=== PATIENT | female | born 1990 | race Caucasian/White ===

== ENCOUNTER 2016-10-26 02:57 | Emergency (ER) | payer OTHER ==
[~2016-10-26] VITALS: Ht 162.6 cm; Wt 54.4 kg
[2016-10-26 03:19] VITALS: BP 109/73
[2016-10-26 03:27] LABS: ABSOLUTE BASOPHIL COUNT 0 /CUMM (0.0-0.2); ABSOLUTE EOSINOPHIL COUNT 0.2 /CUMM (0.0-0.7); ABSOLUTE GRANULOCYTE CT 3.5 /CUMM (1.4-6.5); ABSOLUTE LYMPH COUNT 2.1 /CUMM (1.2-3.4); ABSOLUTE MONOCYTE COUNT 0.6 /CUMM (0.10-0.60); BASOPHIL % 0.6 % (0.0-2.0); EOSINOPHIL % 2.6 % (0-5); GRANULOCYTE % 55.1 % (42.2-75.2); HEMATOCRIT 44.1 % (37-47); MEAN CORPUSCULAR HGB 29.3 PG (27.0-31.0); MEAN CORPUSCULAR HGB CONC 32.8 G/DL (33.0-37.0); MEAN CORPUSCULAR VOLUME 89.3 FL (81.0-99.0); MEAN PLATELET VOLUME 9.2 FL (7.4-10.4); PLATELET COUNT 229 /CUMM (130-400); RBC DISTRIBUTION WIDTH 13.1 % (11.5-14.5); RED BLOOD CELL CT 4.94 /CUMM (4.20-5.40); WHITE BLOOD CELL COUNT 6.3 /CUMM (4.8-10.8)
--- NOTE | 2016-10-26 03:29 | ED GI/GU/ABDOMINAL COMPLAINT ---
History of Present Illness General Chief Complaint: Abdominal Pain/Flank Pain Stated Complaint: "PER EMS ABD PAIN" Source: patient Exam Limitations: no limitations Vital Signs & Intake/Output Vital Signs & Intake/Output Vital Signs Date Time Temp Pulse Resp B/P B/P Pulse O2 O2 Flow FiO2 Mean Ox Delivery Rate 10/26 0319 99.6 94 18 109/73 96 Room Air Allergies Coded Allergies: No Known Allergies (10/26/16) Reconcile Medications No Known Home Medications Triage Nurses Notes Reviewed? yes ? n Is pt currently ? No Onset: Abrupt Duration: hour(s):, waxing and waning Timing: recent history Quality/Severity: cramping Location: epigastric, generalized abdomen, right upper quadrant Radiation: no radiation Activities at Onset: fasting Modifying Factors: Worsens With: palpation. Associated Symptoms: abdominal pain, nausea/vomiting HPI: 26 yo woman in prior good health, fasting for , awoke this am, approximately 2am, with right upper quadrant tenderness to palpation, radiating across the upper abdomen. She notes also mid epigastric pain that radiates to suprapubic region. She has no nausea, vomiting, diarrhea, chills, shortness of breath. She is otherwise well. Past History Travel History Traveled to [place] past 21 day No Medical History Any Pertinent Medical History? see below for history Surgical History Surgical History: none Family History Hx Contributory? No Review of Systems Review of Systems Constitutional: Reports: no symptoms. EENTM: Reports: no symptoms. Respiratory: Reports: no symptoms. Cardiovascular: Reports: no symptoms. GI: Reports: no symptoms. Genitourinary: Reports: no symptoms. Musculoskeletal: Reports: no symptoms. Skin: Reports: no symptoms. Neurological/Psychological: Reports: no symptoms. Hematologic/Endocrine: Reports: no symptoms. Immunologic/Allergic: Reports: no symptoms. All Other Systems: Reviewed and Negative Physical Exam Physical Exam General Appearance: well developed/nourished, mild distress Head: atraumatic, normal appearance Eyes: Bilateral: normal appearance. Ears, Nose, Throat, Mouth: hearing grossly normal Neck: normal inspection, supple, full range of motion, normal alignment Respiratory: normal breath sounds, chest non-tender, no respiratory distress, quiet respiration, lungs clear Cardiovascular: regular rate/rhythm Gastrointestinal: normal bowel sounds, soft, mild ruq, mid epigastric, left lower quadrant tenderness to palpation. no rebound. no guarding. Back: normal inspection Extremities: normal range of motion Neurologic/Psych: no motor/sensory deficits, awake, alert, oriented x 3 Skin: intact, normal color, warm/dry Core Measures ACS in differential dx? No Severe Sepsis Present: No Septic Shock Present: No Progress Differential Diagnosis: bilary colic vs other. Plan of Care: Orders Procedure Date/time Status URINE 10/26 302 Complete URINALYSIS 10/26 302 Complete LIPASE 10/26 302 Complete COMPREHENSIVE METABOLIC PANEL 10/26 302 Complete CBC WITHOUT DIFFERENTIAL 10/26 302 Complete AMYLASE 10/26 302 Complete Laboratory Tests 10/26/16 0328: Urine Color STRAW, Urine Clarity CLEAR, Urine pH 7.0, Ur Specific [place] <= 1.005, Urine Protein NEG, Urine Ketones NEG, Urine Nitrite NEG, Urine Bilirubin NEG, Urine Urobilinogen 0.2, Ur Leukocyte Esterase NEG, Ur Microscopic EXAM NOT REQUIRED, Urine Hemoglobin NEG, Urine Glucose NEG, Urine Test NEGATIVE 10/26/16 0316: Anion Gap 11, Estimated GFR > 60, BUN/Creatinine Ratio 23.3, Glucose 85, Calcium 9.7, Total Bilirubin 0.4, AST 17, ALT 31, Alkaline Phosphatase 51, Total Protein 7.2, Albumin 4.1, Globulin 3.1, Albumin/Globulin Ratio 1.3, Amylase 63, Lipase 99, CBC w Diff NO MAN DIFF REQ, RBC 4.94, MCV 89.3, MCH 29.3, RDW 13.1, MPV 9.2, Gran % 55.1, Lymphocytes % 32.7, Monocytes % 9.0, Eosinophils % 2.6, Basophils % 0.6, Absolute Granulocytes 3.5, Absolute Lymphocytes 2.1, Absolute Monocytes 0.6 , Absolute Eosinophils 0.2, Absolute Basophils 0, PUBS MCHC 32.8 L Diagnostic Imaging: Viewed by Me: CT Scan. Discussed w/RAD: CT Scan. Radiology Impression: abd/pelvic ct... trace fluid. contracted gall bladder... otherwise benign. Initial ED EKG: none Comments: PATIENT: MER LAMB PRESENT AGE: 26 PATIENT ACCOUNT NO: [id number] : 89 LOCATION: [facility] ([place]) ORDERING PHYSICIAN: TAYLOR MERRILL MD SERVICE DATE: 06/12/17-0400 EXAM TYPE: CAT - CT ABD & PELVIS W/O IV CONTRAS EXAMINATION: CT ABDOMEN AND PELVIS WITHOUT CONTRAST CLINICAL INFORMATION: Right upper quadrant pain, left lower quadrant pain COMPARISON: None TECHNIQUE: Multidetector volumetric imaging was performed from the superior aspect of the liver through the pubic symphysis. Sagittal and coronal reformatted images were obtained on the technologist's workstation. DLP: 247.55 mGy-cm FINDINGS: LUNG BASES: The visualized lung bases are unremarkable. LIVER, GALLBLADDER, AND BILIARY TREE: The liver is normal in size, shape, and attenuation. No focal hepatic lesion or biliary ductal dilatation is present. The gallbladder is decompressed and not well evaluated. PANCREAS: Unremarkable. SPLEEN: Unremarkable. ADRENAL GLANDS: Unremarkable. KIDNEYS AND URETERS: The kidneys are normal in size, shape, and attenuation. No hydronephrosis, hydroureter, or calculi seen. No perinephric stranding. BLADDER: Unremarkable. GASTROINTESTINAL TRACT: The small and large bowel are unremarkable. The appendix is unremarkable. ABDOMINAL WALL: No significant hernia is appreciated. LYMPH NODES: No lymphadenopathy is seen, though assessment is limited in the absence of intravenous contrast. VASCULAR: Unremarkable. PELVIC VISCERA: Grossly unremarkable. There is suspected to be trace pelvic free fluid. OSSEOUS STRUCTURES: Unremarkable. IMPRESSION: Trace nonspecific pelvic free fluid, which may be physiologic. No additional acute findings identified. The gallbladder is decompressed and not well evaluated. DICTATED BY: SALAZAR CHAWLA MD DATE/TIME DICTATED:10/26/16451 YOUTH DEVELOPMENT PROFESSIONAL:JACLYN DATE/TIME TRANSCRIBED:10/26/16451 CONFIDENTIAL, DO NOT COPY WITHOUT APPROPRIATE AUTHORIZATION. <Electronically signed in Other Vendor System> SIGNED BY: SALAZAR CHAWLA MD 10/26/16 0506 Departure Departure Disposition: HOME OR SELF CARE Condition: Stable Clinical Impression Primary Impression: Abdominal pain Referrals: PATIENT HAS NO PRIMARY CARE DR (PCP/Family) Departure Forms: Customer Survey General Discharge Information Prescriptions: Current Visit Scripts No Known Home Medications Comments 10/26/16, 5:40.... ct scan benign. labs benign... pt feeling better. discussed with patient and family... pt safe for discharge with close follow up advised.
--- NOTE | 2016-10-26 05:06 | CT SCAN REPORT ---
EXAMINATION: CT ABDOMEN AND PELVIS WITHOUT CONTRAST CLINICAL INFORMATION: Right upper quadrant pain, left lower quadrant pain COMPARISON: None TECHNIQUE: Multidetector volumetric imaging was performed from the superior aspect of the liver through the pubic symphysis. Sagittal and coronal reformatted images were obtained on the technologist's workstation. DLP: 247.55 mGy-cm FINDINGS: LUNG BASES: The visualized lung bases are unremarkable. LIVER, GALLBLADDER, AND BILIARY TREE: The liver is normal in size, shape, and attenuation. No focal hepatic lesion or biliary ductal dilatation is present. The gallbladder is decompressed and not well evaluated. PANCREAS: Unremarkable. SPLEEN: Unremarkable. ADRENAL GLANDS: Unremarkable. KIDNEYS AND URETERS: The kidneys are normal in size, shape, and attenuation. No hydronephrosis, hydroureter, or calculi seen. No perinephric stranding. BLADDER: Unremarkable. GASTROINTESTINAL TRACT: The small and large bowel are unremarkable. The appendix is unremarkable. ABDOMINAL WALL: No significant hernia is appreciated. LYMPH NODES: No lymphadenopathy is seen, though assessment is limited in the absence of intravenous contrast. VASCULAR: Unremarkable. PELVIC VISCERA: Grossly unremarkable. There is suspected to be trace pelvic free fluid. OSSEOUS STRUCTURES: Unremarkable. IMPRESSION: Trace nonspecific pelvic free fluid, which may be physiologic. No additional acute findings identified. The gallbladder is decompressed and not well evaluated.
== END 2016-10-26 06:01 ==
LOC: ERH 02:57
PROVIDERS: Emergency Medicine
DX: R10.11 Right upper quadrant pain (principal); R10.13 Epigastric pain; R10.32 Left lower quadrant pain
CPT/HCPCS: 74176; 81003; 81025